=== PATIENT | male | born 1965 | race Caucasian/White ===

== ENCOUNTER 2021-05-09 00:57 | Day surgery (SDC) | payer BC, SELFPAY ==
[2021-04-24 08:32] VITALS: BMI 22.1
[2021-05-09] MEDS: LACTATED RINGERS 1,000 ML 150 ML IV CONT (06:31)
[2021-05-09 07:04] VITALS: BP 127/78; PULSE 77; RESP 18; TEMP 36.1; O2SAT 100
--- NOTE | 2021-05-09 07:14 | WPDANESEPPF ---
Anes - Initial Pre Proc Eval Procedure: Operation Date: 05/09/21 08:00 Proposed Procedures p Screening Colonoscopy - Prakash Gaspar MD Date/Time: 05/09/21 07:14 Surgeon: Prakash Gaspar MD Pre Op Diagnosis: hx of colon polyps Z86.010 Patient Data Age: 56 Gender: M Height: 1.73 m Weight: 63.8 kg Last Vital Signs Temp 36.1 C L 05/09/21 07:04 Pulse 77 05/09/21 07:04 Resp 18 05/09/21 07:04 BP 127/78 05/09/21 07:04 Pulse Ox 100 05/09/21 07:04 Allergies Allergy/AdvReac Type Severity Reaction Status Date / Time amoxicillin Allergy Itching Verified 05/09/21 06:31 Home Medications Medication Instructions Recorded Confirmed Type multivitamin 1 tablet PO DAILY 11/12/19 04/24/21 History eluxadoline 75 mg tablet 75 mg PO BID 90 Days #180 tablet 08/17/20 04/24/21 Rx losartan 100 mg tablet 100 mg PO DAILY #90 tablet 08/17/20 04/24/21 Rx cholecalciferol (vitamin D3) 25 mcg PO DAILY 04/24/21 04/24/21 History [Vitamin D3] garlic 1,000 mg PO DAILY 04/24/21 04/24/21 History Patient hx anesthesia problems: none Family hx anesthesia problems: none Results Review: All pre-operative results and documents have been reviewed as part of the pre-operative evaluation. [facility] Past Medical History Medical History Dyslipidemia Essential hypertension Tobacco use Social History Social History (Updated 01/22/21 @ 07:33 by Omayra Miles MA) Smoking packs per day: 0.33 Smoking cigarettes per day: 6.6 Years smoked: 30 Smoking pack-years: 9.90 Smoking status: Current every day smoker Tobacco type: cigarettes Second hand tobacco smoke exposure: No Alcohol intake: current Alcohol use details: Social Living arrangements: with family Spiritual care concerns: No Anes - Eval Final PreProcedure Day of Procedure 05/09/21 07:14 Patient weight: normal Heart: regular rate and rhythm Lungs: clear to auscultation and normal air movement Airway: Mallampati scale class II Neurological: alert and oriented Last oral intake: >/= 8 hours ASA classification: III Emergent: no Anesthetic plan: proceed Anesthesia type and monitoring: general GIVS Results Review: All pre-operative results and documents have been reviewed as part of the pre-operative evaluation. Informed Consent: The patient's anesthetic plan and its attendant risks and benefits were discussed with the patient/family/POA. Questions were solicited and answers provided to the satisfaction of the patient/family/POA.
--- NOTE | 2021-05-09 07:45 | WPDGICN ---
Assessment and Plan Assessment and plan (1) History of colon polyps: Code(s): Z86.010 - Personal history of colonic polyps Status: Acute Assessment and Plan: Patient has a history of colon polyps. Plan is for surveillance colonoscopy at this time. GI Consult Note Consult date/time: 05/09/21 07:45 HPI: Priya Sanchez is a 56 year old male Presents for screening colonoscopy. Patient has a history of colon polyps in 2016. He presents today for follow-up examination. His current weight appetite bowel movements are normal. Family history is noncontributory. Neoplasia screening colonoscopy advised. Review of Systems Review of Systems: All systems reviewed & are unremarkable except as noted in HPI and below PMFSH Past Medical History Medical History Dyslipidemia Essential hypertension Tobacco use Social History Social History (Updated 01/22/21 @ 07:33 by Omayra Miles MA) Smoking packs per day: 0.33 Smoking cigarettes per day: 6.6 Years smoked: 30 Smoking pack-years: 9.90 Smoking status: Current every day smoker Tobacco type: cigarettes Second hand tobacco smoke exposure: No Alcohol intake: current Alcohol use details: Social Living arrangements: with family Spiritual care concerns: No Meds Home Medications and Allergies Home Medications Medication Instructions Recorded Confirmed Type multivitamin 1 tablet PO DAILY 11/12/19 04/24/21 History eluxadoline 75 mg tablet 75 mg PO BID 90 Days #180 tablet 08/17/20 04/24/21 Rx losartan 100 mg tablet 100 mg PO DAILY #90 tablet 08/17/20 04/24/21 Rx cholecalciferol (vitamin D3) 25 mcg PO DAILY 04/24/21 04/24/21 History [Vitamin D3] garlic 1,000 mg PO DAILY 04/24/21 04/24/21 History Allergies Allergy/AdvReac Type Severity Reaction Status Date / Time amoxicillin Allergy Itching Verified 05/09/21 06:31 Vital Signs Vital Signs - 24 hr 05/09/21 07:04 Temperature 97 F L Pulse Rate 77 Respiratory Rate 18 Blood Pressure 127/78 Pulse Oximetry 100 Exam Narrative: Physical exam reveals patient be alert. Vital signs stable. HEENT exam is unremarkable. Patient is anicteric. Lungs are clear to auscultation and percussion. Heart is without murmur or extra sounds. Abdominal exam bowel sounds are present soft nontender with no organomegaly. Digital external rectal exam is normal.
[2021-05-09 07:48] VITALS: BP 97/64; PULSE 72; RESP 14; O2SAT 100
[2021-05-09 07:58] VITALS: BP 101/72; PULSE 67; RESP 16; O2SAT 100
[2021-05-09 08:08] VITALS: BP 129/79; PULSE 65; RESP 15; O2SAT 100
== END 2021-05-09 08:16 | disposition home or self-care (01) ==
PROVIDERS: PCP Internal Medicine; Visit Provider Internal Medicine Gastroenterology
PROC: 0DJD8ZZ Inspection of Lower Intestinal Tract, Via Natural or Artificial Opening Endoscopic (ICD-10-PCS; CPT 45378; principal; 2021-05-09 08:00)
DX: Z12.11 Encounter for screening for malignant neoplasm of colon (principal); Z86.010 Personal history of colon polyps; I10 Essential (primary) hypertension; E78.5 Hyperlipidemia, unspecified; F17.210 Nicotine dependence, cigarettes, uncomplicated
CPT/HCPCS: 45378; J7120

== ENCOUNTER 2021-09-06 08:29 | Outpatient (CLI) | payer BC, SELFPAY ==
--- NOTE | 2021-09-06 08:49 | ECG_ITS ---
Measurements Intervals [place] Rate: 64 P: 79 KS: 149 QRS: 74 QRSD: 105 T: 57 QT: 409 QTc: 425 Interpretive Statements SINUS RHYTHM NORMAL ECG Electronically Signed On 09-06-2021 9:05:19 [employer] by Miah Meneses D.O.
== END 2021-09-06 08:30 | disposition home or self-care (01) ==
PROVIDERS: PCP Internal Medicine; Visit Provider Internal Medicine
DX: I10 Essential (primary) hypertension (principal)
CPT/HCPCS: 93005

== ENCOUNTER 2023-08-14 10:58 | Outpatient (CLI) | payer BC, SELFPAY ==
--- NOTE | ~2023-08-14 | CT_ITS ---
EXAMINATION: CT lung screening DATE: 08/14/2023 11:20 INDICATION: Personal history nicotine dependence, current smoker with 30 pack year history TECHNIQUE: Computed tomography (CT) of the chest was performed without intravenous contrast. The dose -length product (DLP) was 102.70 mGy-cm. Automated exposure control and iterative reconstruction tech [employer] were employed. COMPARISON: 03/08/2019 FINDINGS: There is mild emphysema. There is a stable 3 mm nodule in the left upper lobe. No new pulmo nary nodules are identified. The lungs are free of acute opacities. No pleural effusion or pneumothor ax. No pathologically enlarged thoracic lymph nodes are identified. The heart size is normal. Calcifi ed coronary artery atherosclerosis is noted. A stable low-attenuation mass of the left adrenal gland is consistent with an adenoma. IMPRESSION: 1. Lung-RADS category 2: Benign appearance or behavior. Continue annual screening with noncontrast lo w-dose chest CT in 12 months. Reviewed, dictated and finalized at location [facility]. [employer] [facility] IMPRESSION: 1. Lung-RADS category 2: Benign appearance or behavior. Continue annual screeni ng with noncontrast low-dose chest CT in 12 months.
== END 2023-08-14 10:59 | disposition home or self-care (01) ==
PROVIDERS: PCP Nurse Practitioner; Visit Provider Nurse Practitioner
DX: Z12.2 Encounter for screening for malignant neoplasm of respiratory organs (principal); F17.210 Nicotine dependence, cigarettes, uncomplicated
CPT/HCPCS: 71271

== ENCOUNTER 2024-10-12 06:37 | Outpatient (CLI) | payer BC, SELFPAY ==
--- NOTE | ~2024-10-12 | CT_ITS ---
CT Scan of the Chest without Contrast: Clinical Indication: Lung cancer screening, nicotine dependence Technique: Contiguous sections were acquired throughout the chest without intravenous contrast. Dose reduction technique was used on this scan by utilizing automated exposure control and iterative recon struction technique. The dose-length product (DLP) was 101.11 mGy-cm. COMPARISON: 08/14/2023 Findings: There is no evidence of any significant mediastinal, hilar or axillary lymphadenopathy. The mediastin al soft tissues appear normal. There is no evidence of pleural or pericardial effusion. The lungs are clear. No pulmonary nodules or infiltrates are noted. There is mild biapical paraseptal emphysema. Images through the upper abdomen reveal no abnormalities. Impression: Lung RADS 1: Negative. 12 month follow-up screening CT advised. Reviewed, dictated and finalized at [facility]. Impression: Lung RADS 1: Negative. 12 month follow-up screening CT advised.
--- OUTSIDE RECORDS SUMMARY | 2024-10-12 06:39 | XMS_ITS | Continuity of Care Document ---
Author Name [facility] Organization [facility] Care Team Providers Care Teenage Program Director Name Role Phone [facility] Unavailable Unavailable Problems Combined list of problems from [facility] facilities. It does not include entries that were removed or entered in error. Problem Status Onset Date Problem Type Date of Resolution Comments Source Allergic Rhinitis ([facility] [id number]) Active Condition Jun 05, 2022 Entered By: TITI VEGA Comment: seasonally [facility] HTN - Hypertension ([facility] [id number]) Active Condition [facility] Hyperlipidemia ([facility] [id number]) Active Condition [facility] Irritable bowel Active Condition Jun 05, 2022 Entered By: TITI VEGA Comment: predominantly diarrhea [facility] Low Back Pain ([facility] [id number]) Active Condition [facility] Diagnosis: ICD-10-CM Z00.01 Encounter for general adult medical exam w abnormal findings Active Diagnosis [facility] Diagnosis: ICD-10-CM M54.50 Low back pain, unspecified Active Diagnosis [facility] Medications Combined list of outpatient medications from [facility] facilities.Medications provided include 1) outpatient medications from the last 15 months, and 2) patient-reported medications. Medication Details Route Status Patient Instructions Prescription Expires Prescription Number Last Dispense Date Ordering Provider Order Date Order Qty Source AMLODIPINE BESYLATE 2.5MG TAB TAKE ONE TABLET BY MOUTH ONCE A DAY ORAL ACTIVE SRINATH VEGA 2021 [facility] CETIRIZINE HCL 10MG TAB TAKE ONE TABLET BY MOUTH ONCE A DAY ORAL ACTIVE 06/03/2025 [id number] Teresa BANGURA 2023 90 [facility] CHOLECALCIF MINA 50MCG (2,000UNIT) TAB TAKE ONE TABLET BY MOUTH ONCE A DAY ORAL ACTIVE Joseph'SRINATH KEMP A 2021 [facility] CURCUMA CAP/TAB TAKE 1 CAP/TAB BY MOUTH ONCE A DAY ORAL ACTIVE O'SRINATH KEMP A 2021 [facility] CYCLOBENZAP RINE HCL 10MG TAB TAKE ONE TABLET BY MOUTH THREE TIMES A DAY NEEDED FOR MUSCLE SPASM MAY CAUSE DROWSINE SS. DO NOT DRINK ALCOHOL WHILE TAKING THIS MEDICATI ON. ORAL ACTIVE 06/03/2025 [id number] DEPAULOS UZANNE 2023 60 [facility] ELUXADOLINE 75MG TAB TAKE ONE TABLET BY MOUTH TWICE A DAY ORAL ACTIVE Joseph'SRINATH KEMP A 2021 [facility] GARLIC OIL TAB,EC TAKE ONE TABLET BY MOUTH ONCE A DAY ORAL ACTIVE Joseph'SRINATH KEMP A 2021 [facility] LOSARTAN POTASSIUM 100MG TAB TAKE ONE TABLET BY MOUTH ONCE A DAY ORAL ACTIVE Joseph'SRINATH KEMP A 2021 [facility] MULTIVITAMI NS W/MINERALS CAP/TAB TAKE 1 CAP/TAB BY MOUTH ONCE A DAY ORAL ACTIVE Joseph'SRINATH KEMP A 2021 [facility] ROSUVASTATI N CA 10MG TAB TAKE ONE-HALF TABLET BY MOUTH EVERY EVENING ORAL ACTIVE Joseph'SRINATH KEMP A 2021 [facility] Allergies, Adverse Reactions, Alerts Combined list of allergies from [facility] Defense and [facility] Affairs facilities. It does not include entries that were removed or entered in error. Substance Category Reaction Severity Reaction type Status Date Reported Comments Source AMOXICILLIN Propensity to adverse reactions to drug (finding) Itching of eye active 2 [facility] Immunizations Combined list of available immunizations from the Department of Defense and Veterans Affairs facilities. Immunization Series Date Given Administered By Site Reaction Lot Number CVX Code Drug Depilatory Painter Status Comments Source INFLUENZA, INJECTABLE, QUADRIVALENT, PRESERVATIVE FREE [address] [facility] COVID-19 (PFIZER), MRNA, LNP-S, BIVALENT, PF, 30 MCG/0.3 ML DOSE 4 2022 300 complet ed [facility] INFLUENZA, INJECTABLE, MDCK, PRESERVATIVE FREE, QUADRIVALENT 2021 171 complet ed [facility] COVID-19 (PFIZER), MRNA, LNP-S, PF, 30 MCG/0.3 ML DOSE 3 2020 208 [facility] INFLUENZA, INJECTABLE, QUADRIVALENT, PRESERVATIVE FREE 3 2020 150 complet ed [facility] COVID-19 (PFIZER), MRNA, LNP-S, PF, 30 MCG/0.3 ML DOSE 2 2020 208 complet ed [facility] COVID-19 (PFIZER), MRNA, LNP-S, PF, 30 MCG/0.3 ML DOSE 1 2020 208 complet ed [facility] INFLUENZA, INJECTABLE, QUADRIVALENT, PRESERVATIVE FREE 2 2019 [facility] RECOMBINANT 2 2017 187 complet ed [facility] VARICELLA 1 2017 21 complet ed [facility] ZOSTER RECOMBINANT 1 2017 [facility], INJECTABLE, QUADRIVALENT, PRESERVATIVE FREE 1 2017 150 complet ed [facility] Vital Signs Combined list of inpatient and outpatient Vital Signs from Department of Defense and Veterans Affairs, ranging from 12 months to all on record, depending upon the facility. Vital Sign Value Date Comments Source SYSTOLIC BLOOD PRESSURE 172 06/02/2024 09:27:13 [facility] DIASTOLIC BLOOD PRESSURE 80 06/02/2024 09:27:13 [facility] PULSE OXIMETRY 96 06/02/2024 09:27:13 [facility] WEIGHT 160.2 06/02/2024 09:27:13 [facility] BMI 24 kg/m2 06/02/2024 09:27:[facility] PAIN 8 06/02/2024 09:27:13 [facility] HEIGHT 68 06/02/2024 09:27:13 [facility] TEMPERATURE 98.6 06/02/2024 09:27:13 STBharath MAGALLANES [facility] PULSE 68 06/02/2024 09:27:13 [facility] RESPIRATION 18 06/02/2024 09:27:13 [facility] S[facility] Encounters Combined list of: 1) Encounters from Department of [facility] Affairs facilities going backup to the last 18 months, not all [place] inpatient encounters are included; 2) Encounters from the Department of [facility] facilities going backup to 280 months. Location Location Details Encounter Type Encounter Number Reason For Visit Attending Provider ADM Date DC Date Status Disposition Source [facility] Outpatient Encounter [id number] 05/16 [facility] Outpatient Encounter [id number] DARIUS CAMPOS 05/30 [facility] Outpatient Encounter [id number] 06/04 [facility] OFFICE O/P EST MOD 30-39 MIN [id number] Diagnos is: ICD-10- CM M54.50 Low back pain, unspeci NED Lawson 06/04 [facility] Outpatient Encounter [id number] DARIUS CAMPOS 05/27 [facility] OFFICE O/P EST MOD 30 MIN [id number] Diagnos is: ICD-10- CM Z00.01 Encount er for general adult medical exam CHRIS Jackson 06/02 [facility] Social History Combined list of available smoking, tobacco, and other social history from Department of Defense and Veterans Affairs facilities. Social History Type Response Date Comment Sour e Tobacco smoking status NHIS VA-TOBACCO USE EVERY DAY CIGARETTES 06/02/2024 [facility] History of tobacco use VA-TOBACCO NEVER USED OTHER TYPE 06/02/2024 [facility] History of tobacco use VA-TOBACCO USER EVERY DAY 05/30/2023 [facility] History of tobacco use VA-TOBACCO USER EVERY DAY 05/29/2022 [facility]
--- OUTSIDE RECORDS SUMMARY | 2024-10-12 06:39 | XMS_ITS | Clinical Summary ---
Author Organization [facility] Address [address] [place] [address] Care Team Providers Care Sample Sewer Name Role Phone Unavailable Primary Care Provider Unavailabl e Encounters Date Type Department Care Team Description 10/06/2024 External Device Data [facility] Provider, Abstract 10/05/2024 External Device Data [facility] Provider, Abstract 10/05/2024 External Device Data [facility] Provider, Abstract 10/04/2024 External Device Data [facility] Provider, Abstract 10/04/2024 External Device Data [facility] Provider, Abstract 10/01/2024 11:30 AM HOT CAR CHARGER Ancillary Procedure [facility] [address] [place] [address] Marino Dyer MD 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 from Last 3 Months Social History Tobacco Use Types Packs/Day Years Used Date Smoking Tobacco: Never Assessed Sex and Gender Information Value Date Recorded Sex Assigned at Not on file Legal Sex Male 6:30 PM HOT CAR CHARGER Gender Identity Not on file Sexual Orientation Not on file Plan of Treatment Health Maintenance Due Date Last Done Comments DTAP/TDAP/TD VACCINES (1 - Tdap) 1982 COLORECTAL SCREENING 02/27/2008 Colorectal Cancer Screening 02/27/2008 FIT-DNA Q 3 years 02/27/2008 FIT/FOBT Q 1 year 02/27/2008 Flex Sig/CT Colonography Q 5 years 02/27/2008 INFLUENZA VACCINE (#1) 2024 3, 06/05/2022, 07/01/2021, Additional history exists RSV VACCINE (60+ or ) (1 - 1-dose 75+ series) 2038 ZOSTER VACCINE Completed 12/13/2017, 09/27/2017 Procedures Procedure Name Priority Date/Time Associated Diagnosis Comments XR CERVICAL SPINE 4 OR 5 VIEWS Routine 10/01/2024 11:40 AM HOT CAR CHARGER 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 Multilevel cervical spondylosis. 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 FINDINGS: Cervical bony alignment is normal. The vertebral bodies are of average height and are without anterior wedge compression deformities, fractures, dislocations, or blastic/lytic lesions. Disc space narrowing is noted at C5-6 and C6-7. Facet arthropathy is seen in the mid and lower cervical region. Cervical spine straightening is likely positional. The prevertebral soft tissues are normal. 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 FINDINGS: Cervical bony alignment is normal. The vertebral bodies are of average height and are without anterior wedge compression deformities, fractures, dislocations, or blastic/lytic lesions. Disc space narrowing is noted at C5-6 and C6-7. Facet arthropathy is seen in the mid and lower cervical region. Cervical spine straightening is likely positional. The prevertebral soft tissues are normal. IMPRESSION: 1. Multilevel cervical spondylosis. Marino Dyer MD DIAGNOSTIC IMAGING ORDERABLES F inal Result from Last 3 Months Insurance [employer]
--- OUTSIDE RECORDS SUMMARY | 2024-10-12 06:39 | XMS_ITS | Encounter Summary ---
Author Name [facility] Address [address] [place] [address] Care Team Providers Care Oil Pipe Inspector Name Role Phone NICHOLE BANGURA Primary Care Provider Unavailab le Insurance Providers: All historical and current Section Date Range: From patient's date of to the date document was created. This section includes the names of all active insurance providers for the patient. Insurance Provider Type of Coverage Plan Name Start of Policy Coverage End of Policy Coverage Group Number Member ID Insurance Provider's Telephone Number Policy Kruse's Name Patient's Relationship to Policy Kruse [place] PREFERRED PROVIDER ORGANIZAT ION (PPO) RACQUELIN Braden SELEC T NETWO R Jul 28, 2013 [id number] [phone] EMMANUEL CRAVEN PATIENT [place] PREFERRED PROVIDER ORGANIZAT ION (PPO) BOEIN G SELEC T NETWO R Jul 28, 2013 [id number] [phone] EMMANUEL CRAVEN PATIENT AN[place] PREFERRED PROVIDER ORGANIZAT ION (PPO) BOEIN G SELEC T NETWO R Jul 28, 2013 [id number] EMMANUEL CRAVEN PATIENT [place] PREFERRED PROVIDER ORGANIZAT ION (PPO) BOEIN G SELEC T NETWO R Jul 28, 2013 [id number] [phone] EMMANUEL CRAEVN PATIENT JONATHAN VISION VISION SHEMAR VAIL T Jul 28, 2020 VISION [id number] EMMANUEL CRAVEN PATIENT PRIME THERAPEUTI CS RX PRESCRIPT ION SHEMAR Feliciano Jul 28, 2013 [id number] [phone] EMMANUEL CRAVEN PATIENT Selected Encounter This section includes the information on record at NH for the Encounter. Date/Time Encounter Type Encounter Description Reason Provider Source Jun 02, 2024 09:30 AM OFFICE O/P EST MOD 30 MIN PRIMARY CARE/MEDICINE ICD-10-CM Z00.01 Encounter for general adult medical exam w abnormal findings COLIN BANGURA Joann Encounter Template Text not used by [place] Assessments - Encounter Diagnoses This section includes the primary and secondary diagnoses documented for the Encounter. Date/Time Primary/Secondary Diagnosis Diagnosis Name Provider Source Jun 11, 2024 08:48 AM PRIMARY Encounter for general adult medical exam w abnormal findings COLIN BANGURA [facility] Jun 11, 2024 08:48 AM SECONDARY Allergic rhinitis, unspecified [facility] Jun 11, 2024 08:48 AM SECONDARY Cervicalgia COLIN BANGURA [facility] Jun 11, 2024 08:48 AM SECONDARY Essential (primary) hypertension COLIN BANGURA [facility] Jun 11, 2024 08:48 AM SECONDARY Hyperlipidemia, [facility] Jun 11, 2024 08:48 AM SECONDARY Low back pain, unspecified [facility] Joann [facility] Vital Signs: All taken on the encounter date This section contains inpatient and outpatient Vital Signs collected on the date of the Encounter. Date/Time Temperature Pulse Blood Pressure Respiratory Rate SP02 Pain Height Weight Body Mass Index Source Jun 02, 2024 09:33 AM 140/82 [facility] Jun 02, 2024 09:27 AM 98.6 68 172/80 18 96 8 68 160.2 24 [facility] Social History: Smoking Status (Most current) and Tobacco Use (All prior to encounter date) This section includes the most current, and the historical, smoking and tobacco- related health factors from the [place] facility where the Encounter took place. Current Smoking Status This section includes the most current smoking, or tobacco-related health factor, from the [place] facility where the Encounter took place. Date/Time Current Smoking Status Comment Connor chaves Jun 02, 2024 09:30 AM VA-TOBACCO USE [facility] Tobacco Use History This section includes a history of the smoking, or tobacco-related health factors, that were collected on or before the date of the Encounter. The data comes from the [place] facility where the Encounter took place. Date/Time Smoking Status/Tobacco Use Comment F acjada Jun 02, 2024 09:30 AM [place]-TOBACCO USE [facility] Encounter Notes: All associated encounter notes This section contains the clinical notes associated to the Encounter. Date/Time Encounter Note(s) Provider Source Jun 02, 2024 09:35 AM PRIMARY CARE NOTE: LOCAL TITLE: PRIMARY CARE PROVIDER ESTABLISHED VISIT [facility] STANDARD TITLE: PRIMARY CARE NOTE DATE OF NOTE: JUN 02, 2024@09:35 ENTRY DATE: JUN 02, 2024@09:35:55 AUTHOR: NICHOLE BANGURA COSIGNER: URGENCY: STATUS: COMPLETED ESTABLISHED PATIENT DARC-OI-PAIC: REASON FOR VISIT/CHIEF COMPLAINT: 59yo male here for f/u visit, last visit May 2023. Healthcare providers outside the [facility]: PCP Dr Isaiah Mcclelland or SRINATH Rushing every 4-6 months- [facility] HPI: Here for [facility] with the [facility], reports no new concerns at this time. Reports labs done with nonVA PCP about 4 months ago. Hx of HTN, currently on amlodipine 2.5mg and losartan 100mg daily. --reports checking on machine at work, readings around 110's-120's/70's. Hx of low back and neck pain, chronic. Reports his pain is stable, will have flares of pain a couple times a month for which he using tiger balm and biofreeze. Also using tylenol extra strength as needed. --has used muscle relaxers as needed, none recently WHAT IS YOUR GOAL FOR TODAY? SOURCE(S) OF HISTORY: Patient PAST MEDICAL HISTORY: 1) HTN - Hypertension (SCT [id number]) 2) Hyperlipidemia (SCT [id number]) 3) Allergic Rhinitis (SCT [id number]) comment: seasonally 4) Irritable bowel comment: predominantly diarrhea 5) Low Back Pain ([facility] [id number]) FAMILY HISTORY: Reviewed and unchanged. SOCIAL HISTORY: Tobacco: Current smoker, 6 cigarettes per day. smoked for over 30 yrs. Alcohol: 1-2 beers a couple times/month Illicit: None EXERCISE/DIET: active at work MARITAL STATUS: ALLERGIES: AMOXICILLIN ALLERGY REVIEW: Allergy list reviewed and remains current. MEDICATIONS: Active and Recently Outpatient Medications (excluding Supplies): Active Outpatient Medications Status 1) CETIRIZINE HCL 10MG TAB TAKE ONE TABLET BY MOUTH ONCE ACTIVE A DAY Active Non-VA Medications Status 1) Non-VA AMLODIPINE BESYLATE 2.5MG TAB 2.5MG BY MOUTH ACTIVE ONCE A DAY 2) Non-VA CHOLECALCIF 50MCG (D3-2,000UNIT) TAB 50MCG BY ACTIVE MOUTH ONCE A DAY 3) Non-VA CURCUMA CAP/TAB 1 CAP/TAB BY MOUTH ONCE A DAY ACTIVE 4) Non-VA ELUXADOLINE 75MG TAB 75MG BY MOUTH TWICE A DAY ACTIVE 5) Non-VA GARLIC OIL EC TAB 1 TABLET BY MOUTH ONCE A DAY ACTIVE 6) Non-VA LOSARTAN 100MG TAB 100MG BY MOUTH ONCE A DAY ACTIVE 7) Non-VA MULTIVITAMIN/MINERALS CAP/TAB 1 CAP/TAB BY ACTIVE MOUTH ONCE A DAY 8) Non-VA ROSUVASTATIN CA 10MG TAB 5MG BY MOUTH EVERY ACTIVE EVENING 9 Total Medications MEDICATION RECONCILIATION: I have reviewed the patient's medication list with the patient and/or his/her care-neckties painter. Handwritten corrections, additions and/or deletions were made to the list. Corrected Outpatient Medication List was provided to the patient/caregiver. REVIEW OF SYSTEMS: Neg other than as noted in HPI PHYSICAL EXAMINATION: VITALS (most recent, as listed in the electronic record): Temperature: 98.6 F [37.0 C] (06/02/2024 09:27) BP: 140/82 (06/02/2024 09:33) Pulse: 68 (06/02/2024 09:27) Resp: 18 (06/02/2024 09:27) PulsOx: 96% (06/02/2024 09:27) Pain: 8 (06/02/2024 09:27) Weight: Measurement DT WEIGHT LB(KG)[BMI] 06/02/2024 09:27 160.2(72.67)[24] 06/04/2023 09:36 160.8(72.94)[25] Gen: NAD EYE: PERRLA Cardiovascular: RRR, no murmurs, no edema Respiratory: Lungs CTAB Abd/GI: Abdomen non-distended Extremities: adequate ROM, no edema Psych: mood and affect appropriate Neuro: Alert and oriented, CN2-12 grossly intact Skin: Clear and intact DATA REVIEW: No HEMOGLOBIN A1C EO data found Lipid Panel: No LIPID PANEL EO data found CMP: No COMPREHENSIVE METABOLIC PANEL EO data found CBC: No CBC EO data found No PSA (LAST 10 5Y) EO data found TSH: No TSH (1YR) EO data found No VITAMIN D EO data found INR: No INR EO data found UA: No URINALYSIS EO data found IM - IMMUNIZATIONS ADMINISTERED Immunization Series Date Facility Reaction Info COVID-19 (P[facility]), MRNA, LNP-S, * 4 08/06/2022 [facility] COVID-19 ([facility]), MRNA, LNP-S, * 3 07/01/2021 [facility] COVID-19 (P[facility]), MRNA, LNP-S, * 2 10/31/2020 [facility] COVID-19 ([facility]), MRNA, LNP-S, * 1 10/08/2020 [facility] INFLUENZA, MDCK, QUADRIVALENT, PF 06/05/2022 [facility]* INFLUENZA, SPLIT VIRUS, QUADRIVA* 5 05/16/2023 [facility] INFLUENZA, SPLIT VIRUS, QUADRIVA* 3 07/01/2021 [facility] INFLUENZA, SPLIT VIRUS, QUADRIVA* 2 04/27/2020 [facility] INFLUENZA, SPLIT VIRUS, QUADRIVA* 1 08/18/2017 [facility] VARICELLA 1 09/27/2017 [facility] ZOSTER RECOMBINANT 2 12/13/2017 [facility] ZOSTER RECOMBINANT 1 09/27/2017 [facility] ASSESSMENT/PLAN: 1) Annual visit: labs and most medications done by nonVA PCP. --CRCS: colonoscopy in September 2020 with repeat due September 2025. 2) HTN: BP elevated today, recheck w/o change. --reports BP's done outside the clinic are good at 110's-120's/70's. --continue amlodipine 2.5mg and losartan 100mg daily. ---Recommend 150min/week of moderate exercise, along with 2-3 days of strength training. Recommend diet of several veggies/fruits, whole grains, and lean protein. Recommend avoidance of sugary beverages and heavily processed foods. --recommend smoking cessation/reduction. 2) HLD: continues to use rosuvastatin daily. --lipids checked by nonVA PCP, none available at this time. --f/u with nonVA PCP. 3) Low back pain/cervicalgia: chronic, stable. Reports intermittent flares of pain a couple times/month for which he uses tiger balm, biofreeze. --using acetaminophen PRN as well. --has used muscle relaxers previously, would like to resume use as needed. Will order cyclobenzaprine to use PRN. --discussed PT and/or chiro, declines consults at this time. --f/u PRN. 4) Allergic rhinitis: reports intermittent seasonal allergies for which he uses zyrtec. Would like renewal of medication. --Med ordered. RETURN TO CLINIC: 12 months SUMMARY STATEMENT: Plan of care has been discussed with including expected therapeutic benefits and potential side effects of prescribed medication and treatments. [place] verbalizes understanding and is in agreement with the plan of care. Patient was instructed to keep all scheduled appointments and contact photovoltaic fabrication technician for any additional problems. PREVENTION & SCREENING: ALCOHOL: Clinical Reminder not due now or within a month COLORECTAL CANCER: Clinical Reminder not due now or within a month BLOOD PRESSURE: Clinical Reminder not due now or within a month HEMOGLOBIN A1C: Clinical Reminder not due now or within a month Sexual Orientation - CP,L,N,P,PH,PS,S,U: The patient thinks of their sexual orientation as: Straight or Heterosexual HTN Assess for Elevated BP>=140/90 - N,P,PH: The patient's blood pressure is usually adequately controlled. No medication changes are indicated at this time. Comment: home BP's 110's-120's/70's. /nayeli/ NICHOLE BANGURA Staff Physician Signed: 06/02/2024 10:00 NICHOLE BANGURA [facility] Jun 02, 2024 09:27 AM NURSING NOTE: LOCAL TITLE: V15 PACT FACE TO FACE NOTE ST[facility] STANDARD TITLE: NURSING NOTE DATE OF NOTE: JUN 02, 2024@09:27 ENTRY DATE: JUN 02, 2024@09:27:56 AUTHOR: HORACE CAMPOS EXP COSIGNER: URGENCY: STATUS: COMPLETED V15 PACT FACE TO FACE NOTE STL Has ADDENDA Provider Visit: Patient Identifiers : Full Name Date of Reason for visit: Established Follow-Up Mode of Arrival: Ambulatory Allergy Review: AMOXICILLIN Allergy list reviewed and remains current. Recent Vital Signs: Temperature: 98.6 F [37.0 C] (06/02/2024 09:27) Pulse: 68 (06/02/2024 09:27) Respiration: 18 (06/02/2024 09:27) B/P: 172/80 (06/02/2024 09:27) Pain: 8 (06/02/2024 09:) Wt: 160.2 lb [72.67 kg] (06/02/2024:) Ht: 68 in [172.7 cm] (06/02/2024:) BMI: 24.4 POX: 96% (06/02/2024:) Would you like to discuss any personal problem, family problem, alcohol use, drug use, or a mental or emotional illness? No Contact provided Primary Care phone number and encouraged to call if any questions or concerns. Review that after hours nurse line [phone] and emergency room are available 17/02 for patient use. Contact verbalized good understanding. Suicide Screen - V: C-SSRS Screening [place] Suicide Severity Rating Scale (C-SSRS) screener 1. Over the past month, have you wished you were or wished you could go to sleep and not wake up? No 2. Over the past month, have you had any actual thoughts of killing yourself? No 3. Over the past month, have you been thinking about how you might do this? Response not required due to responses to other questions. 4. Over the past month, have you had these thoughts and had some intention of acting on them? Response not required due to responses to other questions. 5. Over the past month, have you started to work out or worked out the details of how to kill yourself? Response not required due to responses to other questions. 6. If yes, at any time in the past month did you intend to carry out this plan? Response not required due to responses to other questions. 7. In your lifetime, have you ever done anything, started to do anything, or prepared to do anything to end your life (for example, collected pills, obtained a gun, gave away valuables, went to the roof but didn't jump)? No 8. If YES, was this within the past 3 months? Response not required due to responses to other questions. Alcohol Use Screen (AUDIT-C) - V: Alcohol Screen: SCREEN FOR ALCOHOL (AUDIT-C) An alcohol screening test (AUDIT-C) was negative (score=2). 1. How often did you have a drink containing alcohol in the past year? Consider a drink to be a 12 ounce can or bottle of regular beer, 8 ounces of malt liquor, a 5 ounce glass of table wine, or a 1.5 ounce shot of liquor (like scotch, gin, or vodka). Two to four times a month 2. How many drinks containing alcohol did you have on a typical day when you were drinking in the past year? One or two drinks 3. How often did you have six or more drinks on one occasion in the past year? Never Depression Screening - V: Perform PHQ-2 A PHQ-2 screen was performed. The score was 0 which is a negative screen for depression. Over the past two weeks, how often have you been bothered by the following problems? 1. Little interest or pleasure in doing things Not at all 2. Feeling down, depressed, or hopeless Not at all Homelessness/Food Insecurity Screen - DI,L,N,P,PH,PS,S,U: In the past 2 months, have you been living in stable housing that you own, rent, or stay in as part of a household? Yes - Living in stable housing. Are you worried or concerned that in the next 2 months you may NOT have stable housing that you own, rent, or stay in as part of a household? No - Not worried about housing near future The reports the following: Within the past 12 months, you worried whether your food would run out before you got money to buy more. Never true Within the past 12 months, the food you bought just didn't last and you didn't have money to get more. Never true Learning Assessment: - * This patient's learning ABILITIES, BARRIERS to learning, CULTURAL and SABIANIST beliefs, and learning PREFERENCES were assessed. Following are findings of note: Patient reads well. Comment: with glasses LANGUAGE Patient reports that Andorran is preferred language for healthcare. Patient reports learning preference is to refer to handouts. Tobacco Use Screening - AT,DE,L,M,N,P,PH,PS,S: The patient smokes cigarettes every day. The patient states they have smoked for the following number of years: # of years: 30 Average number of packs/day over the entire time patient smoked: Packs/day: 0.5 The patient has never used other types of tobacco. /nayeli/ HORACE CAMPOS LPN LICENSED PRACTIAL NURSE Signed: 06/02/2024 09:33 06/02/2024 ADDENDUM STATUS: COMPLETED COVID-19 Immunization - L,N,P,PH,U: Refused Pfizer Monovalent COVID-19 vaccine Immunization: COVID-19 (PFIZER), MRNA, LNP-S, PF, ELLY-SUCROSE, 30 MCG/0.3 ML (AGES 12+ YEARS) Refusal Reason: PATIENT DECISION Patient refuses all immunization(s) in the COVID-19 group Date Documented: 06/02/24 09:37 Influenza Immunization - L,N,P,PH,U: Deferral / Refusal The patient declines to receive the recommended dose of seasonal influenza vaccine. Immunization: INFLUENZA, UNSPECIFIED FORMULATION Refusal Reason: PATIENT DECISION Patient refuses all immunization(s) in the FLU group Date Documented: 06/02/24 09:37 Tdap Immunization - L,N,P,PH,U: The patient declines to receive the recommended dose of Tdap vaccine. Immunization: TDAP Refusal Reason: PATIENT DECISION Patient refuses all immunization(s) in the TDAP group Date Documented: 06/02/24 09:38 /nayeli/ HORACE CAMPOS LPN LICENSED PRACTIAL NURSE Signed: 06/02/2024 09:38 HORACE CAMPOS [facility]
== END 2024-10-12 06:38 | disposition home or self-care (01) ==
PROVIDERS: PCP Family Medicine; Visit Provider Family Medicine
DX: Z12.2 Encounter for screening for malignant neoplasm of respiratory organs (principal); Z87.891 Personal history of nicotine dependence
CPT/HCPCS: 71271